=== PATIENT | female | born 1985 | race Caucasian/White ===

== ENCOUNTER 2016-12-29 15:19 | Emergency (ER) | payer OTHER ==
[2016-12-29] MEDS ORDERED: MORPHINE SULFATE 4 MG/ML SYRG IV ONE (16:10)
[2016-12-29] MEDS ORDERED: NORMAL SALINE 1,000 ML IV ONE (16:10)
--- OUTSIDE RECORDS SUMMARY | 2016-12-29 16:14 | XMS REPORT | Continuity of Care Document ---
:1985 Author Organization [facility] [place] [address] Care Team Providers Name Role Phone Unavailable Primary Care Provider Unavailable Source Comments This disclosure is being made pursuant to the Spoke program and maynot contain all information available regarding this patient.[facility] Active Allergies and Adverse Reactions Not on File Current Medications Be aware that medications may not be up to date as of this document. Alwaysverify current medications with the patient. Not on file Active Problems Not on file Social History Tobacco Use Types Packs/Day Years Used Date Never Assessed Plan of Care Health Maintenance Due Date Last Done Comments Retired-Pertussis Vaccine Adult 2004 Retired-Tetanus Vaccine Adult 2004 Pap Smear 2006 Retired-INFLUENZA VACCINE 05/07/2015 Results from Last 3 Months Not on file
--- OUTSIDE RECORDS SUMMARY | 2016-12-29 16:15 | XMS REPORT | Continuity of Care Document ---
:1985 Author Organization [facility] ([facility]) Address [address] [place] [address] Phone [phone] Care Team Providers Name Role Phone Provider, No-Primary Care Primary Care Provider Unavailable Source Comments This disclosure is being made pursuant to the Care Everywhere program, applicable federal and state laws, and may not contain all informaitonavailable regarding this patient.[facility] ([facility]) Active Allergies and Adverse Reactions Allergen Noted Date Severity Reactions Comments Doxycycline 07/23/2014 Nausea & Vomiting Current Medications Prescription Sig. Disp. Refills Start Date End Date Status etonogestrel-ethinyl insert 1 Device Active estradiol (NUVARING) vaginally every 4 vaginal insert weeks. Insert vaginally and leave in place for 3 weeks. Remove for 1 week break, then repeat 4 week cycle. 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 Regular astigmatism of both eyes 05/25/2016 Laceration of thumb 07/23/2014 Social History Tobacco Use Types Packs/Day Years Used Date Current Every Day Smoker 0.5 Tobacco Cessation:Ready to Quit: No Comments: Last Filed Vital Signs Vital Sign Reading Time Taken Blood Pressure 125/75 07/23/2014 10:27 AM [facility] Pulse 85 07/23/2014 10:27 AM [facility] Temperature 36.5 C (97.7 F) 07/23/2014 10:27 AM [facility] Respiratory Rate - - Height 1.588 m (5' 2.52") 07/23/2014 10:27 AM [facility] Weight 61.236 kg (135 lb) 07/23/2014 10:27 AM [facility] Body Mass Index 24.28 07/23/2014 10:27 AM [facility] Oxygen Saturation - - Plan of Care Date Type Specialty Providers Description 01/12/2017 Appointment Ophthalmology - Shana Alamo, Chief Comp: Patient Specialty OD Reported Reason For [address] [place] [address] [phone] (Fax) Health Maintenance Due Date Last Done Comments Hepatitis B Vaccine (1 of 3 - Primary Series) 1985 Tdap Vaccine 1996 Lipid Disorder Screening 2003 MMR Vaccine 2003 Td Vaccine 2003 Varicella Vaccine (1 of 2 - Adult - No Evidence of 2003 Immunity) Pneumococcal Vaccine (1 of 1 - PPSV23) 2004 Cervical Cancer Screening 2015 Influenza Vaccine: Seasonal Completed Results from Last 3 Months Not on file
[2016-12-29 16:20] LABS: Urine Bilirubin Negative (NEGATIVE); Urine Blood Negative /ul (NEGATIVE); Urine Ketone Negative (NEGATIVE); Urine Nitrite Negative (NEGATIVE); Urine Protein Negative (NEGATIVE); Urine Urobilinogen Normal (NORMAL); Urine pH 7.5 pH (5.0-7.0)
[2016-12-29 16:26] LABS: Hematocrit 33.4 % (37.0-47.0); Hemoglobin 12.2 gm/dL (12.5-16.0); Mean Cell Volume 87.9 fl (78-100); Mean Corpuscular Hemoglobin 32.1 pg (27-31); Mean Corpuscular Hgb Conc 36.5 g/dl (32-36); Mean Platelet Volume 8.4 fl (6.0-9.5); Neutrophil # 5.7 K/mm3 (1.3-6.0); Neutrophil % 61.9 % (42-75.0); Platelet Count 290 K/mm3 (150-450); White Blood Count 9.2 K/mm3 (4.0-10.5)
[2016-12-29 16:30] LABS: Urine Appearance Clear; Urine Color Yellow
[2016-12-29 16:31] LABS: Urine Amorphous Sediment Moderate - 2+ (NONE-FEW); Urine Bacteria 1+; Urine RBC None Seen /hpf (0-5); Urine WBC None Seen /hpf (0-5); Urine Yeast Few - 1+
[2016-12-29 16:39] LABS: Albumin * 3.6 gm/dl (3.4-5.0); Anion Gap 13.8 mmol/L (6.8-13.8); BUN/Creatinine Ratio 11.3 (9.0-21.6); Bilirubin, Total 0.7 mg/dL (0.0-1.1); Ca. Corrected For Albumin 8.8 mg/dL (8.4-10.2); Calcium * 8.8 mg/dL (7.9-10.9); Carbon Dioxide 24.5 mmol/L (24-32.6); Potassium 3.3 mmol/L (3.4-4.6); Total Protein 6.6 gm/dL (6.2-8.2)
[2016-12-29] MEDS ORDERED: MORPHINE SULFATE 4 MG/ML SYRG ONE (16:52)
[2016-12-29 19:09] VITALS: BP 139/92
--- NOTE | 2016-12-29 19:18 | ERNOTE ---
ER Female HPI Date of Service: 12/29/16 Stated Complaint: 9 weeks and bleeding with pain Presenting Symptoms: vaginal bleeding Time Seen by Provider: 12/29/16 16:07 Source: patient Exam Limitations: no limitations Immunizations: IMMUNIZATION HX Immunizations Up to Date No History of Influenza Vaccine No Allergies/Adverse Reactions: Allergies doxycycline Allergy (Mild, Verified 12/29/16 15:30) Nausea Home Medications: HOME MEDICATIONS HYDROcodone/ACETAMINOPHEN [[place] 5-325 Tablet] 1 each PO Q8H PRN #10 tablet [Last Taken Unknown] - History of Present Illness Narrative: Patient presents to the ED for evaluation of vaginal bleeding and cramping. She relates amanda LMP was likely last October but LMP unknown. She was going to have an AB, [facility] 9 weeks. Wednesday she started having bleeding, Wednesday she had cramping. Better Wednesday/Wed but increased today with some clots (no clear tissue) and severe cramping mid low abdomen into back. No fever, no vomiting. No syncope. No other Sx with this. Timing: Present: intermittent Onset Location: Present: suprapubic Radiation: Present: other - low back Activities at Onset: Present: none Modifying Factors - (Improves): Present: other - nothing Modifying Factors - (Worsens): Present: other - nothing Associated Symptoms: Absent: fever/chills Prior Treatment: Absent: treated by physician Review of Systems - Review of Systems Constitutional: Absent: fever ENT: Present: no symptoms reported Respiratory: Absent: shortness of breath Cardiology: Absent: chest pain Gastrointestinal/Abdominal: Present: See HPI Genitourinary: Absent: dysuria Musculoskeletal: Present: back pain All Other Systems: All systems neg except as marked - Patient's Past Medical History Patient History - Medical: No pertinent hx Patient History - Cardiac/Respiratory: No pertinent hx Patient History - Cancer: No Hx of Cancer Patient History - Surgical Procedures: No surgical history Patient History - Other: None LMP (Calendar): 12/20/15 - Family History Mother Family History - Medical: Hypothyroidism - Social History Living Situations: home Psych History: No pertinent hx Does anyone smoke in the home?: Yes Alcohol Use: none Drug Use: none - Immunizations Immunizations Up to Date: No History of Influenza Vaccine: No Physical Exam - Physical Exam General Appearance: Present: alert, no apparent distress Eye Exam: Normal inspection: bilateral, PERRL: bilateral Ears, Nose, Throat: Present: normal ENT inspection Neck: Present: normal inspection Respiratory: Present: no respiratory distress, normal breath sounds, no accessory muscle use, lungs clear Cardiovascular/Chest: Present: regular rate, rhythm, normal peripheral pulses Gastrointestinal/Abdominal: Present: normal bowel sounds, other - miderate suprapubic tendenress. no peritoneal signs. No guarding or rebound. 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 oozing from os, no tissue in os. Blood in vault. Mild uterine tendenress.. No laceration seen or FB seen. ED Progress - Results and Orders Patient's Lab Results:: I have reviewed the patient's lab results. - Vital Signs Patient's Vital Signs:: I have reviewed the patient's vital signs. Vital Signs: Vital Signs 12/29/16 12/29/16 12/29/16 15:19 15:26 15:55 Temperature 36.2 C L 36.1 C L Pulse Rate 89 81 Respiratory 12 Rate Blood Pressure 119/69 169/121 134/94 O2 Sat by Pulse 90 100 Oximetry 12/29/16 12/29/16 12/29/16 16:10 16:40 16:55 Temperature Pulse Rate 76 73 Respiratory Rate Blood Pressure 146/89 141/98 132/96 O2 Sat by Pulse 100 100 Oximetry - CT/Ultrasound CT/Ultrasound Narrative: I reviewed US report by radiology - Progress/Reassessment Chief Complaint: Genitourinary Problem Progress:: Improved Progress Note-Subjective: 12/29/16 19:12 Feeling much improved. I disucssed the case at length with Dr Padorn who was pension examiner. He recommeded cytotec, after discussion with the patient she was not comfortable taking the cytotec and just wished to follow-up tomorrow with OB. i did not call Dr Padron again to inform him of this as she was feeling so much better and wishing to go home. Dr Padron has her name and birthdate and she is to call in the morning for an appointment. He bleeding is improved. She is stable. Rh Positive. No clear evidence of ectopic. I will give her some pain meds for overnight until she see's OB. She is stable at this time. I discussed warning signs and reasons to return as well as the need for close f/ u. Departure Clinical Impression: Vaginal bleeding - Departure Disposition: Home self-care Condition: Stable Instructions: Vaginal Bleeding During , First Trimester Additional Instructions: I have spoken with Dr Padron, call the office in the morning to be seen. Return here if you change your mind about taking the recommended cytotec, have bleeding soaking more that 1 pad per hour for 2 hours or if your condition worsens or changes in any way. No driving with pain medications. Prescriptions: HYDROcodone/ACETAMINOPHEN [[place] 5-325 Tablet] 1 each PO Q8H PRN #10 tablet PRN Reason: Pain
== END 2016-12-29 19:25 | disposition home or self-care (01) ==
LOC: ER 15:19
DX: O46.91 Antepartum hemorrhage, unspecified, first trimester (principal); Z3A.09 9 weeks gestation of pregnancy; Z33.1 Pregnant state, incidental; Z57.31 Occupational exposure to environmental tobacco smoke